=== PATIENT | female | born 1995 | race Two or more races ===

== ENCOUNTER → 2024-06-15 | Outpatient (CLI) | payer MEDICAID ==
[2024-06-15 16:05] LABS: Urine Bacteria None Seen /hpf (None Seen)
[2024-06-15 16:58] LABS: Urine Blood Negative /uL (Negative); Urine Clarity Clear (Clear); Urine Color Colorless (Yellow); Urine Protein, UAD Negative (Negative); Urine Specific Gravity 1.004 (1.001-1.035); Urine Urobilinogen Normal (Negative); Urine WBC <1 /hpf (0 - 5); Urine pH 6.5 (5.0-9.0)
== END | disposition home or self-care (01) ==
LOC: LAB 16:01
DX: Z34.80 Encounter for supervision of other normal pregnancy, unspecified trimester (principal); N39.0 Urinary tract infection, site not specified; Z3A.00 Weeks of gestation of pregnancy not specified
CPT/HCPCS: 81001; 87086

== ENCOUNTER → 2024-08-31 | Outpatient (CLI) | payer MEDICAID | END | disposition home or self-care (01) | LOC: Rad HDHVI 10:01 | PROVIDERS: ATTEND Internal Medicine Cardiovascular Disease | DX: R07.89 Other chest pain (principal) | CPT/HCPCS: 93306 ==

== ENCOUNTER 2024-11-07 09:42 | Observation (INO) | payer MEDICAID ==
[~2024-11-07] VITALS: Ht 157.5 cm; Wt 61.2 kg
[2024-11-07 10:22] LABS: Basophils # (auto) 0 10 ^3/uL (0-0.2); Basophils % (auto) 0.4 % (0.0-2.0); Eosinophils # (auto) 0.1 10 ^3/uL (0-0.8); Eosinophils % (auto) 1.1 % (0.0-7.0); Hematocrit 33.2 % (36.0-46.0); Hemoglobin 11.1 g/dL (12.2-16.2); Lymphocytes # (auto) 1.4 10 ^3/uL (0.4-5.4); Lymphocytes % (auto) 25.7 % (10.0-50.0); Mean Corpuscular Hemoglobin 31.1 pg (28.0-32.0); Mean Corpuscular Hgb Conc. 33.4 g/dL (32.0-36.0); Mean Corpuscular Volume 93.3 fL (80.0-100.0); Monocytes # (auto) 0.4 10 ^3/uL (0-1.3); Monocytes % (auto) 8.1 % (0.0-12.0); Neutrophils # (auto) 3.5 10 ^3/uL (1.6-8.6); Neutrophils % (auto) 64.7 % (37.0-80.0); Nucleated Red Blood Cells % 0.1 %; Platelet Count (auto) 167 10^3/uL (140-450); Red Blood Cells 3.56 10^6/uL (4.0-5.20); White Blood Cell 5.3 10^3/uL (4.4-10.8)
--- NOTE | 2024-11-07 10:31 | DVH ---
BIOPHYSICAL PROFILE HISTORY: PIH TECHNIQUE: Multiple transabdominal real-time grayscale sonographic images through the gravid uterus of the fetus with duplex Doppler color flow and M-mode spectral analysis FINDINGS: BIOPHYSICAL PROFILE: breathing score: 2 movement score: 2 tone score: 2 Quantitative GOLDIE score: 2 (GOLDIE: 12.9 Cm.) Total score: 8 The cervix not well visualized. Single live fetus in cephalic presentation. heart rate 136 beats per minute. Posterior placenta without previa or abruption IMPRESSION: Biophysical profile score: 8
[2024-11-07 10:39] LABS: Albumin 3.6 g/dL (3.2-4.8); Anion Gap 7 (5-15); Calcium 9.1 mg/dL (8.7-10.4); Carbon Dioxide 23 mmol/L (20-31); Potassium 3.7 mmol/L (3.5-5.1); Sodium 140 mmol/L (136-145); Total Protein 6.2 g/dL (5.7-8.2); Uric Acid 5.1 mg/dL (3.1-7.8)
[2024-11-07 10:42] LABS: Alanine Aminotransferase 80 U/L (7-40); Alkaline Phosphatase 149 U/L (46-116); Aspartate Aminotransferase 104 U/L (13-40); BUN/Creatinine Ratio 9.6 (10.0-20.0); Blood Urea Nitrogen < 5 mg/dL (9-23); Chloride 110 mmol/L (98-107); Glucose 74 mg/dL (74-106); INR 0.94 (0.9-1.15); Partial Thromboplastin Time 30.3 SEC (24.5-34.5)
[2024-11-07] MEDS ORDERED: ACETAMINOPHEN 325 MG TAB PO ONE ×2 (10:45)
[2024-11-07 10:52] LABS: Urine Bacteria MOD /hpf (None Seen); Urine Blood Negative /uL (Negative); Urine Budding Yeast OCCASIONAL /hpf (None Seen); Urine Clarity Turbid (Clear); Urine Color Colorless (Yellow); Urine Protein, UAD Negative (Negative); Urine Specific Gravity 1.006 (1.001-1.035); Urine Squamous Epithelial Cell MOD /hpf (<5); Urine Urobilinogen Normal (Negative); Urine WBC 26 /HPF (0-5); Urine pH 5.5 (5.0-9.0)
[2024-11-07 11:04] LABS: Creatinine, Urine 28.71 mg/dL (30.0-125.0); Urine Protein/Creatinine Ratio 0.21
[2024-11-07 11:05] LABS: Protein, Urine < 6.0 mg/dL (1-14)
[2024-11-07] MEDS: ACETAMINOPHEN 500 MG TAB or CAP PO ONE (11:21)
--- NOTE | 2024-11-07 23:18 | DVHDS2 ---
Physician Discharge Progress N Final Diagnosis: testing for rule out PreE Operations or Procedures: Operations or Procedures 29yo IUP@34.0wks, pt was sent down from OB clinic for NST/BPP and preE labs. Pt c/o AJ for the last week that tylenol does not help, and also blurry vision. VSS, normotensive NST reactive FKC/PTL/PreE precautions reviewed Pt sent home with 24 hour urine collection and to come back on 11/09/24. Dr. Sevilla consulted, agrees with POC. Urine P/C ratio: incalculable Laboratory Tests Test 11/07/24 10:09 11/07/24 10:29 Range/Units White Blood Count 5.3 4.4-10.8 10^3/uL Red Blood Count 3.56 L 4.0-5.20 10^6/uL Hemoglobin 11.1 L 12.2-16.2 g/dL Hematocrit 33.2 L 36.0-46.0 % Mean Corpuscular Volume 93.3 80.0-100.0 fL Mean Corpuscular Hemoglobin 31.1 28.0-32.0 pg Mean Corpuscular Hemoglobin Concent 33.4 32.0-36.0 g/dL Red Cell Distribution Width 13.0 11.8-14.3 % Platelet Count 167 140-450 10^3/uL Mean Platelet Volume 10.0 6.9-10.8 fL Neutrophils (%) (Auto) 64.7 37.0-80.0 % Lymphocytes (%) (Auto) 25.7 10.0-50.0 % Monocytes (%) (Auto) 8.1 0.0-12.0 % Eosinophils (%) (Auto) 1.1 0.0-7.0 % Basophils (%) (Auto) 0.4 0.0-2.0 % Neutrophils # (Auto) 3.5 1.6-8.6 10 ^3/uL Lymphocytes # (Auto) 1.4 0.4-5.4 10 ^3/uL Monocytes # (Auto) 0.4 0-1.3 10 ^3/uL Eosinophils # (Auto) 0.1 0-0.8 10 ^3/uL Basophils # (Auto) 0 0-0.2 10 ^3/uL Nucleated Red Blood Cells 0.1 % Prothrombin Time 10.0 9.3-11.8 sec Prothrombin Time INR 0.94 0.9-1.15 Activated Partial Thromboplast Time 30.3 24.5-34.5 SEC Sodium Level 140 136-145 mmol/L Potassium Level 3.7 3.5-5.1 mmol/L Chloride Level 110 H 98-107 mmol/L Carbon Dioxide Level 23 20-31 mmol/L Anion Gap 7 5-15 Blood Urea Nitrogen < 5 L 9-23 mg/dL Creatinine 0.52 L 0.550-1.02 mg/dL Glomerular Filtration Rate Calc 129 >90 mL/min BUN/Creatinine Ratio 9.6 L 10.0-20.0 Serum Glucose 74 74-106 mg/dL Uric Acid 5.1 3.1-7.8 mg/dL Calcium Level 9.1 8.7-10.4 mg/dL Total Bilirubin 1.0 0.2-1.0 mg/dL Aspartate Amino Transferase (AST) 104 H 13-40 U/L Alanine Aminotransferase (ALT) 80 H 7-40 U/L Alkaline Phosphatase 149 H 46-116 U/L Total Protein 6.2 5.7-8.2 g/dL Albumin 3.6 3.2-4.8 g/dL Urine Color Colorless Yellow Urine Clarity Turbid H Clear Urine pH 5.5 5.0-9.0 Urine Specific [place] 1.006 1.001-1.035 Urine Protein Negative Negative Urine Ketones Negative Negative Urine Blood Negative Negative /uL Urine Nitrite Negative Negative Urine Bilirubin Negative Negative Urine Urobilinogen Normal Negative mg/dL Urine Leukocyte Esterase 3+ Negative /uL Urine RBC 1 0 - 4 /hpf Urine Microscopic WBC 26 H 0-5 /HPF Urine Squamous Epithelial Cells Mod <5 /hpf Urine Bacteria Mod H None Seen /hpf Urine Yeast (Budding) Occasional None Seen /hpf Urine Creatinine 28.71 L 30.0-125.0 mg/dL -U-r-i-n-e- -F-p-e-t-e-i-n-/-W-b-k-h-e-h-n-i-n-e- -R-a-t-i-o- -0-.-2-1- Urine Glucose Normal Normal mg/dL Urine Total Protein < 6.0 1-14 mg/dL Other Interventions Other Interventions [facility] [id number] [place] [address] Ph: [phone] DIAGNOSTIC IMAGING Diagnostic Imaging Report : [id number] Signed PATIENT: VANDANA WEST ACCT: [id number] UNIT: [id number] : 1995 LOC: LD ROOM / BED: TRIAGE3 / A AGE / SEX: 29 / F ADM STATUS: ADM IN SERVICE 0956 ORDERING PHYSICIAN: SHANNON MCKENZIE CNM PROCEDURE(s): BPP - BIOPHYSICAL PROFILE REASON: PIH ORDER NUMBER(s): [id number], ACCESSION NUMBER(s): [id number] BIOPHYSICAL PROFILE HISTORY: PIH TECHNIQUE: Multiple transabdominal real-time grayscale sonographic images through the gravid uterus of the fetus with duplex Doppler color flow and M-mode spectral analysis FINDINGS: BIOPHYSICAL PROFILE: breathing score: 2 movement score: 2 tone score: 2 Quantitative GOLDIE score: 2 (GOLDIE: 12.9 Cm.) Total score: 8 The cervix not well visualized. Single live fetus in cephalic presentation. heart rate 136 beats per minute. Posterior placenta without previa or abruption IMPRESSION: Biophysical profile score: 8 ATED BY: LADI CAMARA MD DICTATED DATE/TIME: 11/07/24 1029 SIGNED BY: LADI CAMARA MD SIGNED DATE/TIME: 11/07/24 1029 CC: Condition on Discharge: Stable Disposition: Home Discharge Instructions: Diet: Regular Activity: No Restrictions, As Tolerated Medications: see med list Follow Up Care: Specialist: Pt sent home with 24 hour urine collection and to come back on 11/09/24. Discharge Statement: "Patient was advised to return to the ER or call 911 if any headaches, dizziness, shortness of breath, chest pain, abdominal pain, bleeding, fevers, or worsening of medical condition. Patient was counseled about treatment plan, medications, possible side effects, patientverbalized understanding. All questions were answered to the best of my ability. This discharge took greater then 30 minutes in planning, reviewing documentation, counseling the patient, and discussing with other team members." Visit Coding OBGYN Date of Service: Nov 07, 2024 Billing Provider: SHANNON MCKENZIE CNM SAP ABAP DEVELOPER Common Visit Codes: 84728-[id number] OBS CARE (HIGH) SAP ABAP DEVELOPER Procedure Codes: 12631-90- NON-STRESS TEST SHANNON MCKENZIE CNM Nov 07, 2024 23:18
== END 2024-11-07 11:47 | disposition home or self-care (01) ==
LOC: UNDOADMOB 09:42 → LDRP 09:42 → UNDODISOB 11:47
PROVIDERS: ADMIT Obstetrics & Gynecology; ATTEND Obstetrics & Gynecology
DX: O09.33 Supervision of pregnancy with insufficient antenatal care, third trimester (principal); O26.893 Other specified pregnancy related conditions, third trimester; R51.9 Headache, unspecified; R79.1 Abnormal coagulation profile; H53.8 Other visual disturbances; Z98.890 Other specified postprocedural states; Z79.899 Other long term (current) drug therapy; Z3A.34 34 weeks gestation of pregnancy
CPT/HCPCS: 36415; 76818; 80053; 81001; 81002; 82570; 84156; 84550; 85025; 85610; 85730; 94760; G0378; 76819

== ENCOUNTER 2024-11-09 08:15 | Observation (INO) | payer MEDICAID ==
[2024-11-09 09:06] LABS: Protein, Urine < 6.0 mg/dL (1-14)
--- NOTE | 2024-11-09 09:07 | DVH ---
BIOPHYSICAL PROFILE HISTORY: PIH TECHNIQUE: Multiple transabdominal real-time grayscale sonographic images through the gravid uterus of the fetus with duplex Doppler color flow and M-mode spectral analysis FINDINGS: BIOPHYSICAL PROFILE: breathing score: 2 movement score: 2 tone score: 2 Quantitative GOLDIE score: 2 (GOLDIE: 12.6 Cm.) Total score: 8/8 Single live fetus in cephalic presentation. heart rate 136 beats per minute. Posterior placenta without previa or abruption Biophysical profile score 8/8 corresponding to an LISA of 12/19/24 IMPRESSION: Biophysical profile score: 8/8
[2024-11-09 09:08] LABS: Creatinine, Urine 89.87 mg/dL (30.0-125.0); Urine Protein/Creatinine Ratio 0.21
[2024-11-09 09:31] LABS: Urine Bacteria None Seen /hpf (None Seen)
[2024-11-09 09:47] LABS: Urine Blood Negative /uL (Negative); Urine Clarity Turbid (Clear); Urine Color Yellow (Yellow); Urine Hyaline Cast FEW /lpf (0 - 2); Urine Protein, UAD Negative (Negative); Urine Specific Gravity 1.015 (1.001-1.035); Urine Squamous Epithelial Cell FEW /hpf (<5); Urine Urobilinogen Normal (Negative); Urine WBC 37 /HPF (0-5); Urine pH 5.5 (5.0-9.0)
[2024-11-09 10:03] LABS: Fern Testing Negative
[2024-11-09 10:14] LABS: Urine Total Volume, 24 Hours 750 mL
[2024-11-09 10:15] LABS: 24 Hr. Total Protein, Urine 44.99992 mg/24 Hr (<149.1)
--- NOTE | 2024-11-14 14:23 | DVHDS2 ---
Physician Discharge Progress N Final Diagnosis: rom ruled out 34wks Operations or Procedures: Operations or Procedures nst,sono Condition on Discharge: Good Disposition: Home Discharge Instructions: Diet: Regular Activity: Light activity Medications: na Follow Up Care: Specialist: 2d Discharge Statement: "Patient was advised to return to the ER or call 911 if any headaches, dizziness, shortness of breath, chest pain, abdominal pain, bleeding, fevers, or worsening of medical condition. Patient was counseled about treatment plan, medications, possible side effects, patientverbalized understanding. All questions were answered to the best of my ability. This discharge took greater then 30 minutes in planning, reviewing documentation, counseling the patient, and discussing with other team members." Visit Coding OBGYN Date of Service: Nov 09, 2024 Billing Provider: AVTAR RODRIGUEZ DO SAFEMAKER Common Visit Codes: [id number] OBS CARE (HIGH) SAFEMAKER Procedure Codes: 50718-85- NON-STRESS TEST AVTAR RODRIGUEZ DO Nov 14, 2024 14:23
== END 2024-11-09 10:35 | disposition home or self-care (01) ==
LOC: LDRP 08:15
PROVIDERS: ADMIT Obstetrics & Gynecology; ATTEND Obstetrics & Gynecology
DX: O26.893 Other specified pregnancy related conditions, third trimester (principal); R51.9 Headache, unspecified; H53.8 Other visual disturbances; R11.0 Nausea; O13.3 Gestational [pregnancy-induced] hypertension without significant proteinuria, third trimester; Z3A.34 34 weeks gestation of pregnancy; Z79.899 Other long term (current) drug therapy
CPT/HCPCS: 76818; 81001; 81002; 82570; 84112; 84156; 94760; G0378; Q0114; 76819

== ENCOUNTER 2024-11-16 08:00 | Observation (INO) | payer MEDICAID ==
--- NOTE | 2024-11-16 08:45 | DVH ---
BIOPHYSICAL PROFILE HISTORY: PIH TECHNIQUE: Multiple transabdominal real-time grayscale sonographic images through the gravid uterus of the fetus with duplex Doppler color flow and M-mode spectral analysis FINDINGS: BIOPHYSICAL PROFILE: breathing score: 2 movement score: 2 tone score: 2 Quantitative GOLDIE score: 2 (GOLDIE: 12.1 Cm.) Total score: 8 The cervix not well visualized. Single live fetus in cephalic presentation. heart rate 130 beats per minute. Posterior placenta without previa or abruption IMPRESSION: Biophysical profile score: 8
[2024-11-16 10:45] LABS: Alanine Aminotransferase 32 U/L (7-40); Anion Gap 8 (5-15); Aspartate Aminotransferase 38 U/L (13-40); BUN/Creatinine Ratio 10.9 (10.0-20.0); Calcium 9.2 mg/dL (8.7-10.4); Carbon Dioxide 21 mmol/L (20-31); Glucose 93 mg/dL (74-106); Potassium 3.5 mmol/L (3.5-5.1); Sodium 137 mmol/L (136-145); Total Protein 6.1 g/dL (5.7-8.2)
[2024-11-16 10:46] LABS: Albumin 3.6 g/dL (3.2-4.8); Bilirubin, Total 0.9 mg/dL (0.2-1.0)
[2024-11-16 10:48] LABS: Alkaline Phosphatase 160 U/L (46-116); Blood Urea Nitrogen 6 mg/dL (9-23); Chloride 108 mmol/L (98-107)
[2024-11-16] MEDS ORDERED: URSO300C2 PO (10:59)
[2024-11-16] MEDS ORDERED: PREN-96 PO (11:00)
--- NOTE | 2024-11-16 12:42 | DVHDS2 ---
Physician Discharge Progress N Final Diagnosis: 35wks pih and cholestasis Operations or Procedures: Operations or Procedures nst,sono,labs Condition on Discharge: Good Disposition: Home Discharge Instructions: Diet: Regular Activity: No Restrictions, As Tolerated Medications: start acitgal Follow Up Care: Specialist: 3d Discharge Statement: "Patient was advised to return to the ER or call 911 if any headaches, dizziness, shortness of breath, chest pain, abdominal pain, bleeding, fevers, or worsening of medical condition. Patient was counseled about treatment plan, medications, possible side effects, patientverbalized understanding. All questions were answered to the best of my ability. This discharge took greater then 30 minutes in planning, reviewing documentation, counseling the patient, and discussing with other team members." Visit Coding OBGYN Date of Service: Nov 16, 2024 Billing Provider: AVTAR RODRIGUEZ DO SENIOR EDUCATION SPECIALIST Common Visit Codes: 37662-[id number] OBS CARE (HIGH) SENIOR EDUCATION SPECIALIST Procedure Codes: 55025-52- NON-STRESS TEST AVTAR RODRIGUEZ DO Nov 16, 2024 12:42
== END 2024-11-16 11:15 | disposition home or self-care (01) ==
LOC: LDRP 08:00
PROVIDERS: ADMIT Obstetrics & Gynecology; ATTEND Obstetrics & Gynecology
DX: O26.643 Intrahepatic cholestasis of pregnancy, third trimester (principal); K83.1 Obstruction of bile duct; O13.3 Gestational [pregnancy-induced] hypertension without significant proteinuria, third trimester; Z3A.35 35 weeks gestation of pregnancy; Z79.899 Other long term (current) drug therapy
CPT/HCPCS: 36415; 59025; 76819; 80053; 81002; 94760; G0378

== ENCOUNTER 2024-11-21 06:03 | Observation (INO) | payer MEDICAID ==
[~2024-11-21] VITALS: Ht 149.9 cm; Wt 55.3 kg
[~2024-11-21 06:03] MED LIST: PREN-96 PO; URSO300C2 PO
[2024-11-22 10:07] LABS: Urine Bacteria None Seen /hpf (None Seen)
[2024-11-22 10:17] LABS: Basophils # (auto) 0 10 ^3/uL (0-0.2); Basophils % (auto) 0.6 % (0.0-2.0); Eosinophils # (auto) 0.1 10 ^3/uL (0-0.8); Eosinophils % (auto) 1.5 % (0.0-7.0); Hematocrit 32.9 % (36.0-46.0); Hemoglobin 11.1 g/dL (12.2-16.2); Lymphocytes # (auto) 1.6 10 ^3/uL (0.4-5.4); Lymphocytes % (auto) 24.6 % (10.0-50.0); Mean Corpuscular Hemoglobin 31.4 pg (28.0-32.0); Mean Corpuscular Hgb Conc. 33.7 g/dL (32.0-36.0); Monocytes # (auto) 0.6 10 ^3/uL (0-1.3); Monocytes % (auto) 8.5 % (0.0-12.0); Neutrophils # (auto) 4.2 10 ^3/uL (1.6-8.6); Neutrophils % (auto) 64.8 % (37.0-80.0); Nucleated Red Blood Cells % 0.4 %; Platelet Count (auto) 142 10^3/uL (140-450); Red Blood Cells 3.54 10^6/uL (4.0-5.20); White Blood Cell 6.5 10^3/uL (4.4-10.8)
--- NOTE | 2024-11-22 10:27 | DVH ---
BIOPHYSICAL PROFILE HISTORY: nikkie JOHNSON TECHNIQUE: Multiple transabdominal real-time grayscale sonographic images through the gravid uterus of the fetus with duplex Doppler color flow and M-mode spectral analysis FINDINGS: BIOPHYSICAL PROFILE: breathing score: 2 movement score: 2 tone score: 2 Quantitative GOLDIE score: 2 (GOLDIE: 15 Cm.) Total score: 8 The cervix not well visualized. Single live fetus in cephalic presentation. heart rate 135 beats per minute. Grade 3 posterior placenta without previa or abruption IMPRESSION: Biophysical profile score: 8
[2024-11-22 10:33] LABS: INR 0.94 (0.9-1.15); Partial Thromboplastin Time 30.9 SEC (24.5-34.5)
[2024-11-22 10:35] LABS: Protein, Urine < 6.0 mg/dL (1-14)
[2024-11-22 10:37] LABS: Creatinine, Urine 39.22 mg/dL (30.0-125.0); Urine Protein/Creatinine Ratio 0.15
[2024-11-22 10:39] LABS: Alanine Aminotransferase 17 U/L (7-40); Albumin 3.4 g/dL (3.2-4.8); Anion Gap 10 (5-15); Aspartate Aminotransferase 27 U/L (13-40); BUN/Creatinine Ratio 10.7 (10.0-20.0); Calcium 8.8 mg/dL (8.7-10.4); Glucose 76 mg/dL (74-106); Potassium 3.6 mmol/L (3.5-5.1); Sodium 137 mmol/L (136-145); Uric Acid 5.3 mg/dL (3.1-7.8)
[2024-11-22 10:42] LABS: Alkaline Phosphatase 168 U/L (46-116); Blood Urea Nitrogen 6 mg/dL (9-23); Carbon Dioxide 19 mmol/L (20-31); Chloride 108 mmol/L (98-107)
[2024-11-22 10:48] LABS: Urine Blood Negative /uL (Negative); Urine Clarity Turbid (Clear); Urine Color Light-Yellow (Yellow); Urine Protein, UAD Negative (Negative); Urine Specific Gravity 1.006 (1.001-1.035); Urine Squamous Epithelial Cell FEW /hpf (<5); Urine Urobilinogen Normal (Negative); Urine WBC 11 /HPF (0-5); Urine pH 5.5 (5.0-9.0)
--- NOTE | 2024-11-22 13:41 | DVHDS2 ---
Physician Discharge Progress N Final Diagnosis: cholestasis pih ruled out Operations or Procedures: Operations or Procedures nst,labs,sono Condition on Discharge: Good Disposition: Home Discharge Instructions: Diet: Regular Activity: Light activity Medications: na Follow Up Care: Specialist: 3d Discharge Statement: "Patient was advised to return to the ER or call 911 if any headaches, dizziness, shortness of breath, chest pain, abdominal pain, bleeding, fevers, or worsening of medical condition. Patient was counseled about treatment plan, medications, possible side effects, patientverbalized understanding. All questions were answered to the best of my ability. This discharge took greater then 30 minutes in planning, reviewing documentation, counseling the patient, and discussing with other team members." Visit Coding OBGYN Date of Service: Nov 22, 2024 Billing Provider: AVTAR RODRIGUEZ DO OPERATIONS COORDINATOR Common Visit Codes: [id number]-[id number] INP/OBS CARE (HIGH) OPERATIONS COORDINATOR Procedure Codes: 99340-99- NON-STRESS TEST AVTAR RODRIGUEZ DO Nov 22, 2024 13:41
== END 2024-11-22 11:12 | disposition home or self-care (01) ==
LOC: UNDOADMOB 11-22 09:15 → LDRP 11-22 09:15 → UNDODISOB 11-22 11:12
PROVIDERS: ADMIT Obstetrics & Gynecology; ATTEND Obstetrics & Gynecology
DX: O26.643 Intrahepatic cholestasis of pregnancy, third trimester (principal); K83.1 Obstruction of bile duct; Z3A.36 36 weeks gestation of pregnancy
CPT/HCPCS: 36415; 59025; 76819; 80053; 81001; 81002; 82570; 84156; 84550; 85025; 85610; 85730; G0378

== ENCOUNTER 2024-11-25 09:36 | Observation (INO) | payer MEDICAID ==
--- NOTE | 2024-11-25 10:27 | DVH ---
BIOPHYSICAL PROFILE HISTORY: PIH/Deysi TECHNIQUE: Multiple real-time grayscale sonographic images through the gravid uterus of the fetus wi th duplex Doppler color flow. FINDINGS: BIOPHYSICAL PROFILE: breathing score: 2 movement score: 2 tone score: 2 Quantitative GOLDIE score: 2 Total score: 8 out of 8 The GOLDIE is 12.7 cm. lie is cephalic. Placenta positioning posteriorly. heart rate of 138 beats per minute. IMPRESSION: 1. Biophysical profile score: 8 out of 8
--- NOTE | 2024-11-25 10:50 | DVHDS2 ---
Physician Discharge Progress N Final Diagnosis: cholestasis,pih 36wks Operations or Procedures: Operations or Procedures nst,sono Condition on Discharge: Good Disposition: Home Discharge Instructions: Diet: Regular Activity: Light activity Medications: na Follow Up Care: Specialist: 3d Discharge Statement: "Patient was advised to return to the ER or call 911 if any headaches, dizziness, shortness of breath, chest pain, abdominal pain, bleeding, fevers, or worsening of medical condition. Patient was counseled about treatment plan, medications, possible side effects, patientverbalized understanding. All questions were answered to the best of my ability. This discharge took greater then 30 minutes in planning, reviewing documentation, counseling the patient, and discussing with other team members." Visit Coding OBGYN Date of Service: Nov 25, 2024 Billing Provider: AVTAR RODRIGUEZ DO LOOM REPAIRER Common Visit Codes: 26979-[id number] INP/OBS CARE (LOW), 29226-SCAVQYE INP/OBS CARE (HIGH) LOOM REPAIRER Procedure Codes: 02255-45- NON-STRESS TEST AVTAR RODRIGUEZ DO Nov 25, 2024 10:50
== END 2024-11-25 11:26 | disposition home or self-care (01) ==
LOC: LDRP 09:36
PROVIDERS: ADMIT Obstetrics & Gynecology; ATTEND Obstetrics & Gynecology
DX: O13.3 Gestational [pregnancy-induced] hypertension without significant proteinuria, third trimester (principal); O26.643 Intrahepatic cholestasis of pregnancy, third trimester; K83.1 Obstruction of bile duct; Z3A.36 36 weeks gestation of pregnancy; Z79.899 Other long term (current) drug therapy
CPT/HCPCS: 59025; 76819; 81002; 94760; G0378

== ENCOUNTER 2024-11-28 06:51 | Observation (INO) | payer MEDICAID ==
--- NOTE | 2024-11-28 10:56 | DVH ---
BIOPHYSICAL PROFILE HISTORY: PIH/CHOLESTASIS TECHNIQUE: Multiple transabdominal real-time grayscale sonographic images through the gravid uterus of the fetus with duplex Doppler color flow and M-mode spectral analysis FINDINGS: BIOPHYSICAL PROFILE: breathing score: 2 movement score: 2 tone score: 2 Quantitative GOLDIE score: 2 (GOLDIE: 13.5 Cm.) Total score: 8/8 Single live fetus in cephalic presentation. heart rate 135 beats per minute. Posterior placenta without previa or abruption IMPRESSION: 1. Biophysical profile score: 8/8.
--- NOTE | 2024-11-28 12:57 | DVHDS2 ---
Physician Discharge Progress N Final Diagnosis: testing for presumptive cholestasis Operations or Procedures: Operations or Procedures 29yo IUP@37wks, +FM, denies UCs/LOF/VB/AJ/vision changes/RUQ pain, denies itching in palms and soles of feet after starting actigal 300mg PO BID VSS, normotensive NST reactive last 20 minutes FKC/Labor precautions reviewed Dr. Sevilla consulted, agrees with POC. PIH ruled out, previous labs WNL Bile acids/CMP ordered in [facility] OB office today. Other Interventions Other Interventions [place] [address] Ph: [phone] DIAGNOSTIC IMAGING Diagnostic Imaging Report : [id number] Signed PATIENT: VANDANA WEST ACCT: [id number] UNIT: [id number] : 1995 LOC: [facility] ROOM / BED: TRIAGE2 / A AGE / SEX: 29 / F ADM STATUS: ADM IN SERVICE 1007 ORDERING PHYSICIAN: SHANNON MCKENZIE CNM PROCEDURE(s): BPP - BIOPHYSICAL PROFILE REASON: PIH/CHOLESTASIS ORDER NUMBER(s): [id number], ACCESSION NUMBER(s): [id number] BIOPHYSICAL PROFILE HISTORY: PIH/CHOLESTASIS TECHNIQUE: Multiple transabdominal real-time grayscale sonographic images through the gravid uterus of the fetus with duplex Doppler color flow and M-mode spectral analysis FINDINGS: BIOPHYSICAL PROFILE: breathing score: 2 movement score: 2 tone score: 2 Quantitative GOLDIE score: 2 (GOLDIE: 13.5 Cm.) Total score: 8/8 Single live fetus in cephalic presentation. heart rate 135 beats per minute. Posterior placenta without previa or abruption IMPRESSION: 1. Biophysical profile score: 8/8. ATED BY: KIANA HAMPTON MD DICTATED DATE/TIME: 11/28/24 105 SIGNED BY: KIANA HAMPTON MD SIGNED DATE/TIME: 11/28/24 105 CC: Condition on Discharge: Stable Disposition: Home Discharge Instructions: Diet: Regular Activity: No Restrictions, As Tolerated Medications: see med list Follow Up Care: Specialist: f/u in 1 wk Discharge Statement: "Patient was advised to return to the ER or call 911 if any headaches, dizziness, shortness of breath, chest pain, abdominal pain, bleeding, fevers, or worsening of medical condition. Patient was counseled about treatment plan, medications, possible side effects, patientverbalized understanding. All questions were answered to the best of my ability. This discharge took greater then 30 minutes in planning, reviewing doc umentation, counseling the patient, and discussing with other team members." Visit Coding OBGYN Date of Service: Nov 28, 2024 Billing Provider: SHANNON MCKENZIE CNM SHOULDER JOINER Common Visit Codes: 60133-[id number] OBS CARE (HIGH) SHOULDER JOINER Procedure Codes: 95255-86- NON-STRESS TEST SHANNON MCKENZIE CNM Nov 28, 2024 12:57
== END 2024-11-28 13:00 | disposition home or self-care (01) ==
LOC: LDRP 09:25
PROVIDERS: ADMIT Obstetrics & Gynecology; ATTEND Obstetrics & Gynecology
DX: O26.643 Intrahepatic cholestasis of pregnancy, third trimester (principal); K83.1 Obstruction of bile duct; Z98.890 Other specified postprocedural states; Z79.899 Other long term (current) drug therapy; Z3A.37 37 weeks gestation of pregnancy
CPT/HCPCS: 59025; 76819; 81002; 94760; G0378

== ENCOUNTER 2024-12-05 06:19 | Inpatient (IN) | payer MEDICAID ==
[~2024-12-05] VITALS: Ht 157.5 cm; Wt 56.2 kg
[2024-12-05] MEDS ORDERED: LIDOCAINE 2%HCL (LOCAL ANESTH.) INJ 20ML MDV IJ PRN (09:45)
[2024-12-05] MEDS ORDERED: RHO (D) IMMUNE GLOBULIN 300 MCG INJ IM ONE (09:45)
[2024-12-05] MEDS ORDERED: D5W/LACTATED RINGERS 1,000 ML IV SCH (09:45)
[2024-12-05] MEDS ORDERED: PHISODERM TOP SOLN 240ML BTL TOP PRN (09:45)
[2024-12-05] MEDS ORDERED: WITCH HAZEL-GLYCERIN PAD TOP PRN (09:45)
[2024-12-05] MEDS ORDERED: DERMOPLAST 60ML BOTTLE TOP PRN (09:45)
[2024-12-05 10:15] LABS: Basophils # (auto) 0 10 ^3/uL (0-0.2); Basophils % (auto) 0.4 % (0.0-2.0); Eosinophils # (auto) 0 10 ^3/uL (0-0.8); Eosinophils % (auto) 0.6 % (0.0-7.0); Hematocrit 35.1 % (36.0-46.0); Lymphocytes # (auto) 1.6 10 ^3/uL (0.4-5.4); Lymphocytes % (auto) 25.4 % (10.0-50.0); Mean Corpuscular Hemoglobin 31.5 pg (28.0-32.0); Mean Corpuscular Hgb Conc. 34.4 g/dL (32.0-36.0); Mean Corpuscular Volume 91.6 fL (80.0-100.0); Monocytes # (auto) 0.6 10 ^3/uL (0-1.3); Monocytes % (auto) 9.2 % (0.0-12.0); Neutrophils % (auto) 64.4 % (37.0-80.0); Platelet Count (auto) 139 10^3/uL (140-450); Red Blood Cells 3.83 10^6/uL (4.0-5.20); Red Cell Distribution Width 13.6 % (11.8-14.3); White Blood Cell 6.2 10^3/uL (4.4-10.8)
--- NOTE | 2024-12-05 10:18 | DVH ---
BIOPHYSICAL PROFILE HISTORY: fredy TECHNIQUE: Multiple transabdominal real-time grayscale sonographic images through the gravid uterus of the fetus with duplex Doppler color flow and M-mode spectral analysis FINDINGS: BIOPHYSICAL PROFILE: breathing score: 2 movement score: 2 tone score: 2 Quantitative GOLDIE score: 2 (GOLDIE: 12.4 Cm.) Total score: 8 The cervix not well visualized. Single live fetus in cephalic presentation. heart rate 133 beats per minute. Posterior grade 3 placenta without previa or abruption IMPRESSION: Biophysical profile score: 8/8
--- NOTE | 2024-12-05 10:19 | DVH ---
LIMITED OB ULTRASOUND > 14 WKS: HISTORY: EFW TECHNIQUE: Multiple real-time grayscale images of the gravid uterus with duplex Doppler color flow an d M-mode spectral analysis. TRANSDUCER: Transabdominal FINDINGS: IUP single live fetus at 37 weeks 0 days based on composite averages of the BPD, head circumference, abdominal circumference and femur length Estimated weight 2963 grams heart rate 133 beats per minute GOLDIE 12.4 cm Cervix not well visualized Cephalic Presentation Posterior Placenta without previa or abruption. IMPRESSION: IUP single live fetus at 37 weeks 0 days AUA corresponding to an LISA of 12/26/2024.
[2024-12-05 10:20] LABS: Urine Bacteria FEW /hpf (None Seen); Urine Blood Negative /uL (Negative); Urine Clarity Clear (Clear); Urine Color Light-Yellow (Yellow); Urine Protein, UAD Negative (Negative); Urine Specific Gravity 1.014 (1.001-1.035); Urine Squamous Epithelial Cell FEW /hpf (<5); Urine Urobilinogen Normal (Negative); Urine WBC 31 /HPF (0-5)
[2024-12-05 10:37] LABS: Amphetamine Screen, Urine Neg (NEGATIVE); Barbiturate Scree,Urine Neg (NEGATIVE); Benzodiazephine Screen, Urine Neg (NEGATIVE); Cannabinoid Screen, Urine Neg (NEGATIVE); Cocaine Screen, Urine Neg (NEGATIVE); Opiate Scree,Urine Neg (NEGATIVE); Phencyclidine Screen, Urine Neg (NEGATIVE)
[2024-12-05 10:37] LABS: Alanine Aminotransferase 12 U/L (7-40); Anion Gap 9 (5-15); Aspartate Aminotransferase 23 U/L (13-40); BUN/Creatinine Ratio 9.7 (10.0-20.0); Calcium 9.5 mg/dL (8.7-10.4); Carbon Dioxide 23 mmol/L (20-31); Chloride 106 mmol/L (98-107); Glucose 88 mg/dL (74-106); Potassium 3.6 mmol/L (3.5-5.1); Sodium 138 mmol/L (136-145); Total Protein 6.3 g/dL (5.7-8.2); Uric Acid 5.2 mg/dL (3.1-7.8)
[2024-12-05 10:38] LABS: Albumin 3.6 g/dL (3.2-4.8); Bilirubin, Total 0.9 mg/dL (0.2-1.0)
[2024-12-05 10:39] LABS: Alkaline Phosphatase 207 U/L (46-116); Blood Urea Nitrogen 6 mg/dL (9-23)
[2024-12-05 10:59] LABS: INR 0.96 (0.9-1.15); Partial Thromboplastin Time 30.1 SEC (24.5-34.5); Prothrombin Time 10.2 sec (9.3-11.8)
[2024-12-05 12:20] LABS: Protein, Urine 8.1 mg/dL (1-14)
[2024-12-05 12:23] LABS: Creatinine, Urine 70.97 mg/dL (30.0-125.0); Urine Protein/Creatinine Ratio 0.11
--- NOTE | 2024-12-05 12:34 | DVHHP2 ---
OB CC & HPI Date Date of Admission: Dec 05, 2024 Patient Identification: : 1 Para: 0 EDC: December 19, 2024 EGA: 38.0 weeks Chief Complaints: Reason for admission: induction of labor Indication for induction: other (Cholestasis) Admission Nurse Assessment Rev: Yes History of Present Complaints 29yo IUP@38.0wks presents to labor and delivery for IOL for cholestasis. Pt reports increased swelling in the past few days and has a consistent JA without visual changes. Pt reports feeling mild contractions. Denies LOF/VB/vision changes/RUQ pain. Endorses +FM. PNC: Routine PNC at [facility] OB, adequate visits, PNC complicated by cholestasis (bile acids in the 50s per Dr. Sevilla). Pt has been taking acitgal 300mg PO BID and denies itching of palms and soles of feet since starting actigal. She also had chlamydia in early , pt and partner treated, CJ negative. GTT wnl, dating based on LMP c/w 6wk sono, GBS positive. Past Medical History Cardiac: No pertinent Hx Pulmonary: No pertinent Hx Central Nervous System: No pertinent Hx GI: No pertinent Hx Hemotology/Oncology: No pertinent Hx Hepatobiliary: No pertinent Hx Psychiatric: No pertinent Hx Musculoskeletal: No pertinent Hx Rheumotologic: No pertinent Hx Infectious Disease: No peritnent Hx ENT: No pertinent Hx Renal/: No pertinent Hx Endocrine: No pertinent Hx Dermatology: No pertinent Hx Past Surgical History: No pertinent Hx, Cholecystectomy, Other (Ovarian cystectomy) OB History OB History Care: Good Care Ultrasounds: Normal mid trimester US Obstetrical Complications: Other (Cholestasis) Medical Complications: None Allergies: Coded Allergies: NO KNOWN ALLERGIES (Unverified , 11/07/24) Allergies NKA Home Meds Reported Medications Vit W/ Ferrous Fumara ( One Daily) Daily Tab, 1 TAB PO DAILY, #90 TAB 3 Refills 11/16/24 Ursodiol (Ursodiol) 300 Mg Cap, 300 MG PO, CAP 11/16/24 Home Meds PNV, Vit D, Iron, ASA 81mg daily, Ursodial 300 mg PO BID Current Medications Current Medications Medications (Trade) Dose Ordered Sig/Carlos Route PRN Reason Start Time Stop Time Status Last Admin Noel Seay (Tucks) 1 pad PRN PRN TOP PERINEAL AREA DISCOMFORT 12/05/24 09:45 Sodium Lauryl Sulfate (Phisoderm) 240 ml PRN PRN TOP PERINEAL AREA DISCOMFORT 12/05/24 09:45 Benzocaine (Dermoplast) 1 applic PRN PRN TOP PERINEAL AREA DISCOMFORT 12/05/24 09:45 Dextrose/Lactated Ringer's 1,000 ml @ 125 mls/hr Q8H IV 12/05/24 09:45 Misoprostol (Cytotec) 50 mcg Q4HPRN PRN PO CERVICAL RIPENING 12/05/24 09:45 Lidocaine HCl (Xylocaine) 20 ml ONCE PRN IJ PERINEAL AREA DISCOMFORT 12/05/24 09:45 Acetaminophen (Tylenol Tablet) 650 mg Q4HP PRN PO MODERATE PAIN (4-6 PAIN SCALE) 12/05/24 12:00 Ursodiol (Actigall) 300 mg BID PO 12/05/24 22:00 Family & Social History Family/Social History Past Family/Social History: Maternal grandmother:possible breast cancer, patient unsure Blood Type: O+ Rubella: immune RPR/VDRL: Negative GBS Status: Positive HBsAG: Negative Review of Systems Constitutional: No symptom reported Ears, Nose, & Throat: No symptom reported Eyes: No symptom reported Pulmonary/Respiratory: No symptom reported Cardiovascular: No symptom reported Gastrointestinal: No symptom reported Genitourinary: No symptom reported Musculoskeletal: No symptom reported Skin: No symptom reported Psychiatric: Headache Endocrine: No symptom reported Hemotologic/Lymphatic: No symptom reported OB Admission Exam Physical Exam Vitals: VSS, see chart [place] [address] Ph: [phone] DIAGNOSTIC IMAGING Diagnostic Imaging Report : [id number] Signed PATIENT: VANDANA WEST ACCT: [id number] UNIT: [id number] : 1995 LOC: [facility] ROOM / BED: [facility] / A AGE / SEX: 29 / F ADM STATUS: ADM IN SERVICE 7 ORDERING PHYSICIAN: SHANNON MCKENZIE CNM PROCEDURE(s): OBUS - OB ULTRASOUND COMP GTR 14 WKS REASON: EF ORDER NUMBER(s): [id number], ACCESSION NUMBER(s): [id number] OB ULTRASOUND > 14 WKS: HISTORY: EFW TECHNIQUE: Multiple real-time grayscale images of the gravid uterus with duplex Doppler color flow and M-mode spectral analysis. TRANSDUCER: Transabdominal FINDINGS: IUP single live fetus at 37 weeks 0 days based on composite averages of the BPD, head circumference, abdominal circumference and femur length Estimated weight 2963 grams heart rate 133 beats per minute GOLDIE 12.4 cm Cervix not well visualized Cephalic Presentation Posterior Placenta without previa or abruption. IMPRESSION: IUP single live fetus at 37 weeks 0 days AUA corresponding to an LISA of 12/26/2024. ATED BY: LADI CAMARA MD DICTATED DATE/TIME: 12/05/24 101 SIGNED BY: LADI CAMARA MD SIGNED DATE/TIME: 12/05/24 1017 HEENT: TMs Normal, Fontanelles Normal, Nasal Mucosa Normal, Eyes non-injected, Oropharynx Normal, PERRLA, Moist Membranes, EOMI Heart: Rhythm Normal Lungs: Clear Abdomen: Gravid Extremities: Normal Reflexes: Normal Pelvic Exam: VE done by RN Cervical Dilatation: Fingertip (0.5) Effacement: 50% Station: -2 Membranes: Intact Heart Rate: 130's Accelerations: Accelerations Present Decelerations: No Decelerations Short Term Variability: Present Hair Specialist Variability: Average (6-25) Contractions on Admission: < 5 Minutes Apart Date/Time Contractions Began: 1000 Frequency of Contractions: 2-5 Duration: 60 Intensity: Mild OB Plan Plan Admitting Diagnosis: 29 yo F IUP @ 38.0 weeks Induction of labor for cholestasis Category I EFM Intact Membranes GBS positive Plan: Induction Induction Methd: Misoprostol protocol Other Plan: Admit to L&D, CNM conuslted with Dr. Sevilla and agrees with POC Informed consent obtained Discussed risks, benefits, alternatives of IOL for cholestasis with pt. Pt consents to IOL with misoprostol per order. Start PCN IVPB when in active labor or SROM Continuous monitoring Routine labs and preeclampsia labs ordered tylenol PO ordered for headache Pain mgmt PRN Frequent position changes in and out of bed encouraged Limit SVE unless necessary Intrauterine resuscitation PRN Anticipate CNM co-managing with Dr. Sevilla Visit Coding OBGYN Date of Service: Dec 05, 2024 Billing Provider: SHANNON MCKENZIE CNM PEDIATRIC SPEECH LANGUAGE PATHOLOGIST Common Visit Codes: 40407-[id number] INP/OBS CARE (HIGH) PEDIATRIC SPEECH LANGUAGE PATHOLOGIST Procedure Codes: 17379-77- NON-STRESS TEST CORRY EVANS STDT MDWF Dec 05, 2024 12:34
[2024-12-05] MEDS: ACETAMINOPHEN 325 MG TAB PO PRN (12:51)
[2024-12-05] MEDS ORDERED: PENICILLIN G POT 5MIL/D5 50ML 50 ML IV ONE (15:30)
[2024-12-05] MEDS: LACTATED RINGER'S 1,000 ML IV SCH (18:04)
[2024-12-05] MEDS ORDERED: PENICILLIN G POTASSIUM 2,500,000 UNITS in D5W 5% 50 ML IV SCH (19:30)
[2024-12-05] MEDS: miSOPROStol 50 MCG per PRE-CUT 1/2 TAB PO PRN (19:59)
[2024-12-05] MEDS: URSODIOL 300 MG CAP PO SCH (22:01)
[2024-12-06] VITALS (12 sets, daily range): BP systolic 111–153; BP diastolic 62–86; PULSE 78–114; RESP 13–18; TEMP 97.8–98.4; O2SAT 90–100
[2024-12-06] MEDS ORDERED: LACT. RINGERS/OXYTOCIN 20UNITS 500 ML IV ONE ×2 (00:45→01:15)
--- NOTE | 2024-12-06 00:49 | DVHPN2 ---
[facility] Labor Progress Note Date and Time Seen Date Seen: Dec 06, 2024 Time Seen: 00:48 Subjective Patient reports: Feels worse Subjective Comment Headache resolved with tylenol Objective Vital Signs VSS, see CPN Ruled out preeclampsia Laboratory Tests Test 12/05/24 09:58 12/05/24 10:11 Range/Units White Blood Count 6.2 4.4-10.8 10^3/uL Red Blood Count 3.83 L 4.0-5.20 10^6/uL Hemoglobin 12.0 L 12.2-16.2 g/dL Hematocrit 35.1 L 36.0-46.0 % Mean Corpuscular Volume 91.6 80.0-100.0 fL Mean Corpuscular Hemoglobin 31.5 28.0-32.0 pg Mean Corpuscular Hemoglobin Concent 34.4 32.0-36.0 g/dL Red Cell Distribution Width 13.6 11.8-14.3 % Platelet Count 139 L 140-450 10^3/uL Mean Platelet Volume 10.6 6.9-10.8 fL Neutrophils (%) (Auto) 64.4 37.0-80.0 % Lymphocytes (%) (Auto) 25.4 10.0-50.0 % Monocytes (%) (Auto) 9.2 0.0-12.0 % Eosinophils (%) (Auto) 0.6 0.0-7.0 % Basophils (%) (Auto) 0.4 0.0-2.0 % Neutrophils # (Auto) 4.0 1.6-8.6 10 ^3/uL Lymphocytes # (Auto) 1.6 0.4-5.4 10 ^3/uL Monocytes # (Auto) 0.6 0-1.3 10 ^3/uL Eosinophils # (Auto) 0 0-0.8 10 ^3/uL Basophils # (Auto) 0 0-0.2 10 ^3/uL Nucleated Red Blood Cells 0.0 % Prothrombin Time 10.2 9.3-11.8 sec Prothrombin Time INR 0.96 0.9-1.15 Activated Partial Thromboplast Time 30.1 24.5-34.5 SEC Fibrinogen 435 H 177-375 mg/dL Sodium Level 138 136-145 mmol/L Potassium Level 3.6 3.5-5.1 mmol/L Chloride Level 106 98-107 mmol/L Carbon Dioxide Level 23 20-31 mmol/L Anion Gap 9 5-15 Blood Urea Nitrogen 6 L 9-23 mg/dL Creatinine 0.62 0.550-1.02 mg/dL Glomerular Filtration Rate Calc 124 >90 mL/min BUN/Creatinine Ratio 9.7 L 10.0-20.0 Serum Glucose 88 74-106 mg/dL Uric Acid 5.2 3.1-7.8 mg/dL Calcium Level 9.5 8.7-10.4 mg/dL Total Bilirubin 0.9 0.2-1.0 mg/dL Aspartate Amino Transferase (AST) 23 13-40 U/L Alanine Aminotransferase (ALT) 12 7-40 U/L Alkaline Phosphatase 207 H 46-116 U/L Total Protein 6.3 5.7-8.2 g/dL Albumin 3.6 3.2-4.8 g/dL Treponema pallidum Antibody Non-reactive Negative Hepatitis B Surface Antigen Negative Negative Hepatitis C Antibody Negative Negative HIV (1&2) Antibody Negative Negative Urine Color Light-yellow Yellow Urine Clarity Clear Clear Urine pH 6.0 5.0-9.0 Urine Specific [place] 1.014 1.001-1.035 Urine Protein Negative Negative Urine Ketones Negative Negative Urine Blood Negative Negative /uL Urine Nitrite Negative Negative Urine Bilirubin Negative Negative Urine Urobilinogen Normal Negative mg/dL Urine Leukocyte Esterase 3+ Negative /uL Urine RBC 1 0 - 4 /hpf Urine Microscopic WBC 31 H 0-5 /HPF Urine Squamous Epithelial Cells Few <5 /hpf Urine Bacteria Few H None Seen /hpf Urine Creatinine 70.97 30.0-125.0 mg/dL Urine Protein/Creatinine Ratio 0.11 Urine Glucose Normal Normal mg/dL Urine Total Protein 8.1 1-14 mg/dL Urine Opiates Screen Neg NEGATIVE Urine Fentanyl Screen Neg NEGATIVE Urine Barbiturates Screen Neg NEGATIVE Urine Phencyclidine Screen Neg NEGATIVE Urine Amphetamines Screen Neg NEGATIVE Urine Benzodiazepines Screen Neg NEGATIVE Urine Cocaine Screen Neg NEGATIVE Urine Cannabinoids Screen Neg NEGATIVE Monitoring Method Monitoring Method: External Heart Rate Heart Rate Baseline: 120 Heart Rate Variability: Moderate Presence of FHR Accelerations: Yes Presence of FHR Decelerations: No Changes in Trends of Patterns: No Are all 5 Components of the FH: Yes Contractions Contractions Frequency: Other (5-6 in 10 minutes) Duration of Contraction: 80 Contractions Intensity: Mild Contractions Resting Tone: Relaxed Membranes Membranes: Intact Vaginal Exam Vag Exam Deferred: Yes Medications Medications - Pitocin: No Medications - Pain Medications: PRN Medication - Epidural: No Medication - Other 2 doses of PO cytotec received so far Lab Results Lab Results Current Medications Medications (Trade) Dose Ordered Sig/Carlos Start Time Stop Time Status Last Admin Dose Admin Noel Seay (Barbercks) 1 pad PRN PRN 12/05/24 09:45 Sodium Lauryl Sulfate (Phisoderm) 240 ml PRN PRN 12/05/24 09:45 Benzocaine (Dermoplast) 1 applic PRN PRN 12/05/24 09:45 Misoprostol (Cytotec) 50 mcg Q4HPRN PRN 12/05/24 09:45 12/06/24 00:01 50 MCG Lidocaine HCl (Xylocaine) 20 ml ONCE PRN 12/05/24 09:45 Acetaminophen (Tylenol Tablet) 650 mg Q4HP PRN 12/05/24 12:00 12/05/24 12:51 650 MG Ursodiol (Actigall) 300 mg BID 12/05/24 22:00 12/05/24 22:01 300 MG Lactated Ringer's 1,000 ml @ 125 mls/hr Q8H 12/05/24 15:30 12/05/24 22:01 125 MLS/HR Penicillin G Potassium 50 ml @ 100 mls/hr ONCE ONCE 12/05/24 15:30 12/05/24 15:59 DC Penicillin G Potassium [id number] units/Dextrose 50 ml @ 100 mls/hr Q4H 12/05/24 19:30 Oxytocin 500 ml @ 999 mls/hr Q31M ONCE 12/06/24 00:45 12/06/24 01:15 UNV Oxytocin 500 ml @ 125 mls/hr Q4H ONCE 12/06/24 01:15 12/06/24 05:14 UNV Laboratory Tests Test 12/05/24 10:11 12/05/24 09:58 Range/Units Urine Color Light-yellow Yellow Urine Clarity Clear Clear Urine pH 6.0 5.0-9.0 Urine Specific [place] 1.014 1.001-1.035 Urine Protein Negative Negative Urine Ketones Negative Negative Urine Blood Negative Negative /uL Urine Nitrite Negative Negative Urine Bilirubin Negative Negative Urine Urobilinogen Normal Negative mg/dL Urine Leukocyte Esterase 3+ Negative /uL Urine RBC 1 0 - 4 /hpf Urine Microscopic WBC 31 H 0-5 /HPF Urine Squamous Epithelial Cells Few <5 /hpf Urine Bacteria Few H None Seen /hpf Urine Creatinine 70.97 30.0-125.0 mg/dL Urine Protein/Creatinine Ratio 0.11 Urine Glucose Normal Normal mg/dL Urine Total Protein 8.1 1-14 mg/dL Urine Opiates Screen Neg NEGATIVE Urine Fentanyl Screen Neg NEGATIVE Urine Barbiturates Screen Neg NEGATIVE Urine Phencyclidine Screen Neg NEGATIVE Urine Amphetamines Screen Neg NEGATIVE Urine Benzodiazepines Screen Neg NEGATIVE Urine Cocaine Screen Neg NEGATIVE Urine Cannabinoids Screen Neg NEGATIVE White Blood Count 6.2 4.4-10.8 10^3/uL Red Blood Count 3.83 L 4.0-5.20 10^6/uL Hemoglobin 12.0 L 12.2-16.2 g/dL Hematocrit 35.1 L 36.0-46.0 % Mean Corpuscular Volume 91.6 80.0-100.0 fL Mean Corpuscular Hemoglobin 31.5 28.0-32.0 pg Mean Corpuscular Hemoglobin Concent 34.4 32.0-36.0 g/dL Red Cell Distribution Width 13.6 11.8-14.3 % Platelet Count 139 L 140-450 10^3/uL Mean Platelet Volume 10.6 6.9-10.8 fL Neutrophils (%) (Auto) 64.4 37.0-80.0 % Lymphocytes (%) (Auto) 25.4 10.0-50.0 % Monocytes (%) (Auto) 9.2 0.0-12.0 % Eosinophils (%) (Auto) 0.6 0.0-7.0 % Basophils (%) (Auto) 0.4 0.0-2.0 % Neutrophils # (Auto) 4.0 1.6-8.6 10 ^3/uL Lymphocytes # (Auto) 1.6 0.4-5.4 10 ^3/uL Monocytes # (Auto) 0.6 0-1.3 10 ^3/uL Eosinophils # (Auto) 0 0-0.8 10 ^3/uL Basophils # (Auto) 0 0-0.2 10 ^3/uL Nucleated Red Blood Cells 0.0 % Prothrombin Time 10.2 9.3-11.8 sec Prothrombin Time INR 0.96 0.9-1.15 Activated Partial Thromboplast Time 30.1 24.5-34.5 SEC Fibrinogen 435 H 177-375 mg/dL Sodium Level 138 136-145 mmol/L Potassium Level 3.6 3.5-5.1 mmol/L Chloride Level 106 98-107 mmol/L Carbon Dioxide Level 23 20-31 mmol/L Anion Gap 9 5-15 Blood Urea Nitrogen 6 L 9-23 mg/dL Creatinine 0.62 0.550-1.02 mg/dL Glomerular Filtration Rate Calc 124 >90 mL/min BUN/Creatinine Ratio 9.7 L 10.0-20.0 Serum Glucose 88 74-106 mg/dL Uric Acid 5.2 3.1-7.8 mg/dL Calcium Level 9.5 8.7-10.4 mg/dL Total Bilirubin 0.9 0.2-1.0 mg/dL Aspartate Amino Transferase (AST) 23 13-40 U/L Alanine Aminotransferase (ALT) 12 7-40 U/L Alkaline Phosphatase 207 H 46-116 U/L Total Protein 6.3 5.7-8.2 g/dL Albumin 3.6 3.2-4.8 g/dL Treponema pallidum Antibody Non-reactive Negative Hepatitis B Surface Antigen Negative Negative Hepatitis C Antibody Negative Negative HIV (1&2) Antibody Negative Negative Assessment Assessment 29 yo F IUP @ 38.1 weeks Induction of labor for cholestasis Category I EFM Intact Membranes GBS positive Plan Plan IV fluid bolus of 300ml ordered for tachysystole Continue with PO cytotec Start PCN IVPB when in active labor or SROM Continuous monitoring Pain mgmt PRN Frequent position changes in and out of bed encouraged Limit SVE unless necessary Intrauterine resuscitation PRN Anticipate CNKarma co-managing with Dr. Sevilla Plan discussed with: Patient, Spouse Visit Coding OBGYN Date of Service: Dec 06, 2024 Billing Provider: SHANNON MCKENZIE CNM INDUSTRIAL RELATIONS COMMISSIONER Common Visit Codes: [id number] INP/OBS CARE(HIGH) SHANNON MCKENZIE CNM Dec 06, 2024 00:49
[2024-12-06] MEDS: ONDANSETRON HCL 4 MG/2 ML VIAL IV PRN (03:22)
[2024-12-06] MEDS: NALBUPHINE HCL 10 MG/1ml INJECTION IV PRN (03:24)
[2024-12-06] MEDS: ePHEDrine SULFATE 50 MG/ML AMP ONE (06:46)
[2024-12-06] MEDS: NALOXONE HCL 0.4 MG/ML VIAL IV ONE (07:30)
[2024-12-06] MEDS: ePHEDrine SULFATE 50 MG/ML AMP IV ONE (07:30)
[2024-12-06] MEDS: ROPIVACAINE HCL 200 ML ONE (07:34)
--- NOTE | 2024-12-06 09:11 | DVHPN2 ---
Chief Complaints Patient reports: No new complaints, Feels worse Nursing reports: No new complaints Objective Vitals Vital Signs Date Time Temp Pulse Resp B/P (MAP) Pulse Ox O2 Delivery O2 Flow Rate FiO2 12/06/24 03:24 79 20 148/67 Medications Current Medications Medications (Trade) Dose Ordered Sig/Carlos Route PRN Reason Start Time Stop Time Status Last Admin Acetaminophen (Tylenol Tablet) 650 mg Q4HP PRN PO MODERATE PAIN (4-6 PAIN SCALE) 12/05/24 12:00 12/05/24 12:51 Benzocaine (Dermoplast) 1 applic PRN PRN TOP PERINEAL AREA DISCOMFORT 12/05/24 09:45 Dextrose/Lactated Ringer's 1,000 ml @ 125 mls/hr Q8H IV 12/05/24 09:45 Cancel Lactated Ringer's 1,000 ml @ 125 mls/hr Q8H IV 12/05/24 15:30 12/06/24 07:33 Lidocaine HCl (Xylocaine) 20 ml ONCE PRN IJ PERINEAL AREA DISCOMFORT 12/05/24 09:45 Misoprostol (Cytotec) 50 mcg Q4HPRN PRN PO CERVICAL RIPENING 12/05/24 09:45 12/06/24 00:01 Nalbuphine HCl (Nubain) 10 mg Q4HP PRN IV MODERATE PAIN (4-6 PAIN SCALE) 12/06/24 03:00 12/06/24 03:24 Ondansetron HCl (Zofran) 4 mg Q4HPRN PRN IV NAUSEA / VOMITING 12/06/24 03:00 12/06/24 03:22 Penicillin G Potassium [id number] units/Dextrose 50 ml @ 100 mls/hr Q4H IV 12/05/24 19:30 Sodium Lauryl Sulfate (Phisoderm) 240 ml PRN PRN TOP PERINEAL AREA DISCOMFORT 12/05/24 09:45 Ursodiol (Actigall) 300 mg BID PO 12/05/24 22:00 12/05/24 22:01 Witch Geena (Tucks) 1 pad PRN PRN TOP PERINEAL AREA DISCOMFORT 12/05/24 09:45 Others ve-2-3 cm/60/-2 Studies Laboratory Tests 12/05/24 09:58 Test 12/05/24 09:58 Range/Units Serum Glucose 88 74-106 mg/dL Ass/Plan Assessment iol for cholestasis Plan lópez inserted but baby didnt tolerate so lópez removed will start pitocin in couple hrs Visit Coding OBGYN Date of Service: Dec 06, 2024 Billing Provider: AVTAR RODRIGUEZ DO NOTE TELLER Common Visit Codes: [id number] INP/OBS CARE(HIGH) NOTE TELLER Procedure Codes: 09581-81- NON-STRESS TEST AVTAR RODRIGUEZ DO Dec 06, 2024 09:11
[2024-12-06] MEDS ORDERED: MORPHINE SULF PF 5 MG/10 ML VIAL ONE (09:39)
[2024-12-06] MEDS ORDERED: LACT. RINGERS/OXYTOCIN 20UNITS 1,000 ML IV ONE (09:45)
[2024-12-06] MEDS ORDERED: ceFAZolin 1GM/50ML 50 ML IV SCH (09:45)
[2024-12-06] MEDS ORDERED: ONDANSETRON HCL 4 MG/2 ML VIAL IV PRN ×2 (09:45→11:15)
[2024-12-06] MEDS: GUM (CHEWING) 1 GUM CHEW CHEW ONE (09:45)
[2024-12-06] MEDS ORDERED: LIDOCAINE 2% (LOCAL ANESTH.) PF 5ml SDV ONE (09:49)
[2024-12-06] MEDS: ceFAZolin 2 GM/D5W50ml 50 ML IV ONE (09:55)
[2024-12-06] MEDS ORDERED: ONDANSETRON HCL 4 MG/2 ML VIAL ONE (10:15)
[2024-12-06] MEDS ORDERED: ePHEDrine SULFATE 50 MG/ML AMP ONE (10:21)
--- NOTE | 2024-12-06 10:25 | DVHHP ---
ADMIT DATE: 12/05/2024 CHIEF COMPLAINT: Nonreassuring heart tracing. HISTORY OF PRESENT ILLNESS: The patient is a 29-year-old 1, para 0 with EDC 12/19/2024, estimated gestational age of 38 weeks, admitted for induction of labor. The patient received Cytotec. She was admitted for cholestasis of for induction. The patient received Cytotec; however, then started having decelerations. She is remote from delivery only 3 cm. Subsequently, decision was made to proceed with primary . Risks, complications, indication discussed with the patient. The patient fully understands. She wishes to proceed with primary . PAST MEDICAL HISTORY: None. PAST SURGICAL HISTORY: None. SOCIAL HISTORY: None. FAMILY HISTORY: None. SUPERVISOR LANDSCAPE HISTORY: The patient is primigravid. ALLERGIES: No known drug allergies. REVIEW OF SYSTEMS: Consistent with HPI. PHYSICAL EXAMINATION: VITAL SIGNS: Stable, afebrile. HEENT: Within normal limits. CARDIOVASCULAR: Regular rate and rhythm. LUNGS: Clear to auscultation. BREASTS: Symmetrical. No masses. ABDOMEN: Gravid. PELVIC: 3, 60, -2. EXTREMITIES: No clubbing, cyanosis, or edema. IMPRESSION: * Intrauterine at 38 weeks. * Induction of labor for cholestasis of . * Nonreassuring heart tracing, fetus at risk. PLAN: Primary low transverse section. Informed consent obtained. Risks and complications of surgery including infection, bleeding, hematoma formation, injury to bowel, bladder, surrounding organs, possibility of DVT, pulmonary embolism, risk of anesthesia discussed with the patient. Options reviewed. All questions answered. The patient fully understands. She wishes to proceed with planned procedure. DO KADE Barksdale/BÁRBARA TID: [id number] RECEIPT: [id number]
[2024-12-06] MEDS: CARBOPROST TROMETHAMINE 250 MCG/1ML VIAL IM ONE (10:30)
[2024-12-06] MEDS ORDERED: NALOXONE HCL 0.4 MG/ML VIAL IV PRN (11:15)
[2024-12-06] MEDS: NALBUPHINE HCL 10 MG/1ml INJECTION SUBCUT ONE (11:15)
[2024-12-06] MEDS: ONDANSETRON HCL 4 MG/2 ML VIAL IV ONE (11:15)
[2024-12-06] MEDS ORDERED: HYDROmorphone HCL 2 MG/ML VL/or syr IV PRN (11:15)
[2024-12-06] MEDS ORDERED: MEPERIDINE HCL (25 MG/ML) 1ML VIAL IV PRN (11:15)
[2024-12-06] MEDS ORDERED: DexAMETHasone SOD PHOS 10MG/1ML VIAL INJ IV PRN (11:15)
[2024-12-06] MEDS ORDERED: diphenhdrAMINE HCL 50 MG/1 ML VL IV PRN (11:15)
[2024-12-06] MEDS: ACETAMINOPHEN IV 1000 MG/100ML (10MG/ML) IV PRN ×2 (11:37→19:31)
[2024-12-06] MEDS: HYDROmorphone HCL 2 MG/ML VL/or syr IV PRN (11:37)
[2024-12-06] MEDS ORDERED: KETOROLAC TROMETH 30 MG/ML 1ML VIAL IV PRN (11:50)
[2024-12-06] MEDS: MORPHINE SULFATE 4 MG/ML SYR/VIAL IV PRN (14:54)
--- NOTE | 2024-12-06 15:31 | DVHOP2 ---
Operative Report DATE OF OPERATION: 12/06/24 PREOPERATIVE DIAGNOSES: iup at 38wks iol for cholestasis of preg,non reassuring fht ,fetus at risk POSTOPERATIVE DIAGNOSES:sme,meconium SURGEON: Avtar Sevilla D.O./ewa / TYPE OF ANESTHESIA : spinal CONSENT: The patient was informed of the risks and benefits of the procedure. The patient was informed of the risks and benefits of the procedure. These include but are not limited to , complications of anesthesia, postoperative infection, incomplete relief of symptoms, recurrence of symptoms, damage to blood vessels, nerves and tendons, deep venous thrombosis, pulmonary embolism and possible need for repeat surgery in the future. FINDINGS: Baby [b] with Apgars of [8] and [9]. Grossly normal appearing tubes and ovaries.meconium PROCEDURES: Primary low transverse section. PROCEDURE IN DETAIL: The patient was taken to the operating room. She already had an epidural in place. She was then placed in supine position with a leftward tilt. A Pfannenstiel skin incision was made 2 cm above the symphysis pubis. This incision was carried to the underlying layer of fascia. The fascia was nicked in the midline. The incision was extended laterally. The superior aspect of the fascial incision was grasped and elevated. The same procedure was done to the inferior aspect of the fascial incision. The rectus muscles were then in the midline. Peritoneum was identified and entered. Peritoneal incision was extended superiorly and inferiorly with good visualization of the bladder. Bladder blade was inserted. Vesicouterine peritoneum was identified and entered. Lower uterine segment was incised in a transverse fashion. The was delivered from vertex present ation. was baby [b] with Apgars [8] and [9]. Placenta was then removed manually. Uterus was exteriorized and cleared of all clots and debris. The incision was repaired using 0 Vicryl in a double-layered fashion. No bleeding was noted. Uterus was then returned to the abdomen. The gutters were cleared off all clots and debris. Peritoneum was closed using 0 Vicryl, fascia was closed using 0 Maxon, and skin was closed using cece. The patient tolerated the procedure well. She was taken to the recovery room in stable condition. ESTIMATED BLOOD LOSS: Estimated blood loss was noted to be 500 mL. Visit Coding OBGYN Date of Service: Dec 06, 2024 Billing Provider: AVTAR SEVILLA DO WELDING PROCESS ENGINEER Common Visit Codes: [id number]/OBS SAME DATE (HIGH) WELDING PROCESS ENGINEER Procedure Codes: [id number] DELIVERY ONLY AVTAR SEVILLA DO Dec 06, 2024 15:31
--- NOTE | 2024-12-06 15:33 | POSTOP ---
Post-Operative Note Post-Operative Note Preop Diagnosis iup at 38wks iol for cholestaSIS,FETUS AT RISK ,NONREASSURING FHT Postop Diagnosis: SAME,MECONIUM Operation performed PLTCS Specimen BABY BOY,APGARS 8-9,MECONIUM Anesthesia: Regional Anesthesiologist: MICHELA Blood Loss(fluid mgmt) 500ML Surgeon Avtar Sevilla Taping Foreman SHALONDA Implant NA Complications & Mgmt NONE Date 12/06/24 Time 15:31 Visit Coding OBGYN Date of Service: Dec 06, 2024 Billing Provider: AVTAR SEVILLA DO GRAIN DISTRIBUTOR Common Visit Codes: 55779-ANU/OBS SAME DATE (HIGH) GRAIN DISTRIBUTOR Procedure Codes: [id number] DELIVERY ONLY AVTAR SEVILLA DO Dec 06, 2024 15:33
[2024-12-06] MEDS ORDERED: HYDR-4072 PO (15:34)
[2024-12-06] MEDS ORDERED: IBUP-1456 PO ×2 (15:34→23:56)
[2024-12-06] MEDS ORDERED: DOCU-94 PO (15:34)
[2024-12-06 16:00] LABS: Basophils # (auto) 0 10 ^3/uL (0-0.2); Basophils % (auto) 0.2 % (0.0-2.0); Eosinophils # (auto) 0 10 ^3/uL (0-0.8); Eosinophils % (auto) 0.1 % (0.0-7.0); Hematocrit 30.9 % (36.0-46.0); Hemoglobin 10.6 g/dL (12.2-16.2); Lymphocytes % (auto) 8.3 % (10.0-50.0); Mean Corpuscular Hemoglobin 31.6 pg (28.0-32.0); Mean Corpuscular Hgb Conc. 34.4 g/dL (32.0-36.0); Mean Corpuscular Volume 91.9 fL (80.0-100.0); Monocytes # (auto) 0.9 10 ^3/uL (0-1.3); Monocytes % (auto) 7.4 % (0.0-12.0); Neutrophils # (auto) 9.7 10 ^3/uL (1.6-8.6); Platelet Count (auto) 138 10^3/uL (140-450); Red Blood Cells 3.36 10^6/uL (4.0-5.20); Red Cell Distribution Width 13.6 % (11.8-14.3); White Blood Cell 11.5 10^3/uL (4.4-10.8)
[2024-12-06] MEDS: ceFAZolin 1GM/50ML 50 ML IV SCH (17:35)
[2024-12-06] MEDS: KETOROLAC TROMETH 30 MG/ML 1ML VIAL IV PRN (21:19)
[2024-12-06] MEDS ORDERED: PREN-96 PO (23:56)
[2024-12-07] VITALS (15 sets, daily range): BP systolic 98–124; BP diastolic 58–77; PULSE 71–94; RESP 16–20; TEMP 97.8–98.4; O2SAT 95–99
--- NOTE | 2024-12-07 00:06 | DVHPN2 ---
Progress Note Date Seen: December 07, 2024 Subjective S: bleeding is less, advancing diet as tolerated, denies lightheaded/dizziness, pain well controlled with IV medications, no concerns with urinating, passing flatus, no BM yet, ambulating well, vital signs Vital Sign Date Time Temp Pulse Resp B/P (MAP) Pulse Ox O2 Delivery O2 Flow Rate FiO2 12/06/24 23:00 98.2 100 16 111/71 (84) 96 98.2 12/06/24 19:00 Room Air 12/06/24 11:11 98 Total Intake and Output 12/06/24 12/06/24 12/07/24 15:00 23:00 07:00 Intake Total 28.9 ml 1100 ml Output Total 925 ml Balance 28.9 ml 175 ml medications Current Medications Medications Dose Ordered Sig/Carlos Route Start Time Stop Time Status Last Admin Dose Admin Noel Geena 1 pad PRN PRN TOP 12/05/24 09:45 Sodium Lauryl Sulfate 240 ml PRN PRN TOP 12/05/24 09:45 Benzocaine 1 applic PRN PRN TOP 12/05/24 09:45 Dextrose/Lactated Ringer's 1,000 ml @ 125 mls/hr Q8H IV 12/05/24 09:45 Cancel Lidocaine HCl 20 ml ONCE PRN IJ 12/05/24 09:45 Cancel Acetaminophen 650 mg Q4HP PRN PO 12/05/24 12:00 12/05/24 12:51 650 MG Lactated Ringer's 1,000 ml @ 125 mls/hr Q8H IV 12/05/24 15:30 12/06/24 17:25 125 MLS/HR Penicillin G Potassium [id number] units/Dextrose 50 ml @ 100 mls/hr Q4H IV 12/05/24 19:30 Cancel Ondansetron HCl 4 mg Q4HP PRN IV 12/06/24 09:45 Diphenhydramine HCl 25 mg Q4HP PRN IV 12/06/24 11:15 Cefazolin Sodium 50 ml @ 100 mls/hr Q8H IV 12/06/24 18:00 12/07/24 10:29 12/06/24 17:35 100 MLS/HR Acetaminophen 1,000 mg Q8HPRN PRN IV 12/06/24 11:45 12/07/24 11:44 12/06/24 19:31 1,000 MG Morphine Sulfate 2 mg Q4HP PRN IV 12/06/24 14:30 12/06/24 14:54 2 MG Ketorolac Tromethamine 30 mg Q6HPRN PRN IV 12/06/24 19:15 12/11/24 19:14 12/06/24 21:19 30 MG laboratory and microbiology Laboratory Tests 12/06/24 15:43 12/05/24 09:58 Test 12/05/24 09:58 Range/Units Serum Glucose 88 74-106 mg/dL Objective O: VSS Chest: heart sounds normal and lung sounds clear bilaterally Abd: soft, non-tender, fundus at U/firm/midline, active bowel sounds, no rebound or guarding Incision: sylke dressing open to air, clean/dry/intact Ext: Non-tender, No edema, 2+ BLE DTRs Lochia: minimal See lab results Problems(with codes): (1) S/P primary low transverse Assessment/Plan A/P: 29yo now POD#1 s/p primary -Continue routine post-op PP care Plan discussed with: Patient, Spouse Visit Coding OBGYN Date of Service: December 07, 2024 Billing Provider: SHANNON MCKENZIE CNM INSTRUCTOR CREELER Common Visit Codes: [id number] INP/OBS CARE(HIGH) SHANNON MCKENZIE CNM December 07, 2024 00:06
[2024-12-07 06:23] LABS: Basophils # (auto) 0 10 ^3/uL (0-0.2); Basophils % (auto) 0.2 % (0.0-2.0); Eosinophils # (auto) 0 10 ^3/uL (0-0.8); Eosinophils % (auto) 0.2 % (0.0-7.0); Hematocrit 25.9 % (36.0-46.0); Lymphocytes # (auto) 1.2 10 ^3/uL (0.4-5.4); Lymphocytes % (auto) 12.6 % (10.0-50.0); Mean Corpuscular Hemoglobin 32.1 pg (28.0-32.0); Mean Corpuscular Hgb Conc. 34.9 g/dL (32.0-36.0); Mean Corpuscular Volume 92.2 fL (80.0-100.0); Monocytes # (auto) 0.6 10 ^3/uL (0-1.3); Monocytes % (auto) 6.6 % (0.0-12.0); Neutrophils # (auto) 7.5 10 ^3/uL (1.6-8.6); Neutrophils % (auto) 80.4 % (37.0-80.0); Platelet Count (auto) 125 10^3/uL (140-450); Red Blood Cells 2.81 10^6/uL (4.0-5.20); Red Cell Distribution Width 13.4 % (11.8-14.3); White Blood Cell 9.3 10^3/uL (4.4-10.8)
[2024-12-07] MEDS: HYDROcodone-ACET 5/325MG TAB PO PRN ×2 (10:48→18:46)
[2024-12-07] MEDS: SIMETHICONE 80 MG CHEWABLE TABLET PO SCH (12:37)
[2024-12-07] MEDS: IBUPROFEN 800 MG TAB PO PRN (19:12)
[2024-12-07] MEDS: DOCUSATE SOD 100 MG CAP PO SCH (22:00)
[2024-12-08 03:00] VITALS: BP 116/74; PULSE 94; RESP 16; TEMP 97.5; O2SAT 98
[2024-12-08 07:00] VITALS: BP 134/83; PULSE 74; RESP 18; TEMP 97.7; O2SAT 99
--- NOTE | 2024-12-08 07:56 | DVHPN2 ---
Chief Complaints Patient reports: No new complaints, Feels worse Nursing reports: No new complaints Objective Vitals Vital Signs Date Time Temp Pulse Resp B/P (MAP) Pulse Ox O2 Delivery O2 Flow Rate FiO2 12/08/24 03:00 97.5 94 16 116/74 (88) 98 97.5 12/07/24 18:30 Room Air 12/07/24 07:00 0.0 12/06/24 11:11 98 Medications Current Medications Medications (Trade) Dose Ordered Sig/Carlos Route PRN Reason Start Time Stop Time Status Last Admin Acetaminophen/ Hydrocodone Bitart (Painter 5/325MG Tab) 1 tab Q4HPRN PRN PO FOR PAIN 1-6 12/07/24 10:15 12/07/24 18:46 Acetaminophen/ Hydrocodone Bitart (Painter 5/325MG Tab) 2 tab Q4HPRN PRN PO FOR PAIN 7-10 12/07/24 10:15 12/07/24 23:56 Dimethicone (Mylicon Tab) 80 mg QID PO 12/07/24 12:00 12/08/24 05:38 Docusate Sodium (Colace Capsule) 100 mg Q12HR PO 12/07/24 22:00 Ibuprofen (Motrin Tablet) 800 mg Q8HP PRN PO BREAKTHROUGH PAIN 12/07/24 10:15 12/08/24 04:45 General: Normal Lungs: Normal Cardiovascular: Normal Abdominal: Soft Extremities: Normal Studies Laboratory Tests 12/07/24 05:48 12/05/24 09:58 Test 12/05/24 09:58 Range/Units Serum Glucose 88 74-106 mg/dL Ass/Plan Assessment pcs Plan supportive care Visit Coding OBGYN Date of Service: December 08, 2024 Billing Provider: AVTAR RODRIGUEZ DO HEAVY EQUIPMENT OPERATING ENGINEER Common Visit Codes: [id number] INP/OBS CARE(HIGH) AVTAR RODRIGUEZ DO December 08, 2024 07:56
[2024-12-08 11:00] VITALS: BP 127/83; PULSE 68; RESP 20; TEMP 97.8; O2SAT 97
[2024-12-08 15:00] VITALS: BP 120/77; PULSE 76; RESP 18; TEMP 98.2; O2SAT 96
[2024-12-08 19:00] VITALS: BP 121/85; PULSE 73; RESP 16; TEMP 98.1; O2SAT 96
[2024-12-08 23:00] VITALS: BP 107/64; PULSE 84; RESP 16; TEMP 97.9; O2SAT 98
[2024-12-09 03:00] VITALS: BP 125/75; PULSE 78; RESP 17; TEMP 97.8; O2SAT 100
[2024-12-09 07:00] VITALS: BP 113/67; PULSE 70; RESP 16; TEMP 97.8; O2SAT 96; O2SAT 99
--- NOTE | 2024-12-09 07:31 | DVHPN2 ---
Chief Complaints Patient reports: No new complaints, Feels worse Nursing reports: No new complaints Objective Vitals Vital Signs Date Time Temp Pulse Resp B/P (MAP) Pulse Ox O2 Delivery O2 Flow Rate FiO2 12/09/24 05:54 97.8 12/09/24 03:00 78 17 125/75 (92) 100 12/08/24 19:00 Room Air 12/08/24 07:00 0.0 General: Normal Lungs: Normal Cardiovascular: Normal Abdominal: Soft Extremities: Normal Studies Laboratory Tests 12/07/24 05:48 12/05/24 09:58 Test 12/05/24 09:58 Range/Units Serum Glucose 88 74-106 mg/dL Ass/Plan Assessment pcs Plan dc home fu this wk Visit Coding OBGYN Date of Service: December 09, 2024 Billing Provider: AVTAR RODRIGUEZ DO EAP SPECIALIST Common Visit Codes: [id number] INP/OBS CARE(HIGH), 18490-AUN/OBS DISCH DAY >30MIN AVTAR RODRIGUEZ DO December 09, 2024 07:31
--- NOTE | 2024-12-09 07:32 | DVHDS2 ---
Obstetrics Discharge Summary Obstetrics Discharge Summary Date of Admission: Dec 06, 2024 Date of Discharge: December 09, 2024 Reason For Admission: Induction of Labor Procedures: NST Intrapartum Procedures: (Low Cervical Transverse) Procedures: None Operative Complicat: None Discharge Diagnosis: Delivery Discharge Information: Activity (Other), Diet (Routine), Medications (Name:), Instructions (Routine), Discharge to (Home), Discarge date (-) Visit Coding OBGYN Date of Service: December 09, 2024 Billing Provider: AVTAR RODRIGUEZ DO COMPUTATIONAL SCIENTIST Common Visit Codes: [id number] INP/OBS CARE(HIGH), 12363-USQ/OBS DISCH DAY >30MIN AVTAR RODRIGUEZ DO December 09, 2024 07:32
== END 2024-12-09 11:11 | disposition home or self-care (01) | DRG 540 ==
LOC: LDRP 08:41 → UNDOADMOB 08:41 → LDRP 09:26 → OBSVTOIN 09:47 → INTOOBSV 09:47 → LDRP 12:05
PROVIDERS: ADMIT Obstetrics & Gynecology; ATTEND Obstetrics & Gynecology
PROC: 3E0DXGC Introduction of Other Therapeutic Substance into Mouth and Pharynx, External Approach (ICD-10-PCS; 2024-12-05)
PROC: 10D00Z1 Extraction of Products of Conception, Low, Open Approach (ICD-10-PCS; principal; 2024-12-06 10:03)
DX: O77.0 Labor and delivery complicated by meconium in amniotic fluid (principal); K76.89 Other specified diseases of liver; O26.643 Intrahepatic cholestasis of pregnancy, third trimester; R71.0 Precipitous drop in hematocrit; O99.824 Streptococcus B carrier state complicating childbirth; O76 Abnormality in fetal heart rate and rhythm complicating labor and delivery; Z3A.38 38 weeks gestation of pregnancy; Z37.0 Single live birth
CPT/HCPCS: 36415; 59200; 62282; 76805; 76819; 80053; 80307; 81001; 81002; 82570; 84156; 84550; 85025; 85384; 85610; 85730; 86703; 86780; 86803; 86850; 86900; 86901; 87340; 94760; 94762; 96360; 96361; 96366; 96374; 96375; G0378; J0131; J1885; J2003; J2405; J7060